=== PATIENT | female | born 1960 | race Caucasian/White ===

== ENCOUNTER 2016-11-15 19:45 | Emergency (ER) | payer OTHER ==
[~2016-11-15] VITALS: Ht 170.2 cm; Wt 70.5 kg
[~2016-11-15 19:45] MED LIST: ADDERALL20 MG PO; ADDERALL30 MG PO; AMPHETAMINE SAL20 MG PO; CELEXA; CITALOPRAM HBR40 MG; CITALOPRAM HBR40 MG PO; ENDOCET 10-3251 EACH PO; ENDOCET 5-3251 EACH PO; LAMICTAL; LAMOTRIGINE100 MG; LAMOTRIGINE100 MG PO; LORAZEPAM0.5 MG PO; NEXIUM; NEXIUM40 MG PO; OXYCODONE HCL10 MG PO; OXYCODONE HCL15 MG PO; OXYCODONE HCL5 MG PO; PERCOCET 7.51 TABLET PO; RISPERDAL; RISPERIDONE0.5 MG; RISPERIDONE0.5 MG PO; RISPERIDONE1 MG PO; SENNA S TABLET1 EACH PO; TOPIRAMATE50 MG; TOPIRAMATE50 MG PO; ZOFRAN ODT4 MG PO; topamax
[2016-11-15] MEDS ORDERED: ROXICODONE5 MG PO (21:45)
[2016-11-15 22:16] VITALS: BP 117/77
== END 2016-11-15 22:17 | disposition home or self-care (01) ==
LOC: EME 19:45
PROC: 3E0234Z Introduction of Serum, Toxoid and Vaccine into Muscle, Percutaneous Approach (ICD-10-PCS; principal; 2016-11-15)
DX: S20.212A Contusion of left front wall of thorax, initial encounter (principal); T25.222A Burn of second degree of left foot, initial encounter; W19.XXXA Unspecified fall, initial encounter; X02.0XXA Exposure to flames in controlled fire in building or structure, initial encounter; Y92.029 Unspecified place in mobile home as the place of occurrence of the external cause; Z23 Encounter for immunization
CPT/HCPCS: 71101; 99281; 99284